=== PATIENT | male | born 1940 | race Caucasian/White ===

== ENCOUNTER 2017-12-10 11:00 | Outpatient (CLI) | payer MEDICARE, OTHER | END 2017-12-10 11:01 | disposition home or self-care (01) | LOC: BICRAD 11:00 | PROVIDERS: ATTEND Internal Medicine Hematology & Oncology | DX: C90.00 Multiple myeloma not having achieved remission (principal) | CPT/HCPCS: 77075 ==

== ENCOUNTER 2017-12-11 09:53 | Outpatient (CLI) | payer MEDICARE, OTHER ==
--- NOTE | 2017-12-11 14:20 | PET ---
PET CT: HISTORY: A 77-year-old male with a recent diagnosis of multiple myeloma. TECHNIQUE: PET scan with CT attenuation correction is performed from the base of the brain through the proximal thighs following the intravenous administration of 10.2 mCi [id number] in the right antec ubital fossa. Imaging was performed after an uptake interval of 57 minutes. FINDINGS: There are multiple foci of increased FDG localization in the skeleton and including the spine, ribs, and scapula. The maximum SUV is 5.6 in the T7 vertebral body. No carlos hypermetabolism is seen in the neck, chest, axilla, abdomen, or pelvis. No hypermetabolic p ulmonary nodules, liver, or adrenal lesions are seen. There is physiologic activity in the GI and tracts and the visualized portions of the brain. CT s can used for attenuation correction demonstrates no evidence of pleural effusions or ascites. IMPRESSION: Multiple hypermetabolic foci in the skeleton consistent with recent diagnosis of multiple myeloma. POS: [facility]
== END 2017-12-11 09:54 | disposition home or self-care (01) ==
LOC: PET 09:53
PROVIDERS: ATTEND Internal Medicine Hematology & Oncology
DX: C90.00 Multiple myeloma not having achieved remission (principal)
CPT/HCPCS: 78815; A9552

== ENCOUNTER 2017-12-29 14:10 | Outpatient (CLI) | payer MEDICARE, OTHER ==
--- NOTE | 2017-12-29 14:58 | RAD ---
LEFT RIBS: HISTORY: Multiple myeloma. Secondary malignant neoplasm. Left rib pain. FINDINGS: AP and oblique views left ribs obtained. AP and oblique views left ribs demonstrate a nondisplaced left 7th rib fracture. No expansile rib le ave seen. Correlation with CT of the chest may be of use as clinically indicated. IMPRESSION: Nondisplaced left 7th rib fracture. No associated hemo- or pneumothorax is seen. POS: [facility]
--- NOTE | 2017-12-29 14:59 | RAD ---
RIGHT RIB SERIES: HISTORY: Right rib pain. FINDINGS: AP and oblique views right ribs obtained. Images demonstrate a mottled appearance involving the mid shaft of the right humerus. This is compat ible with the patient's history of multiple myeloma. No definite evidence of right rib fracture is seen. Osseous structures are otherwise unremarkable. IMPRESSION: Unremarkable AP and oblique views right ribs. POS: [facility]
--- NOTE | 2017-12-29 15:02 | RAD ---
THREE VIEWS STERNUM: HISTORY: Multiple myeloma, sternal pain. FINDINGS: AP, lateral, and oblique views sternum are obtained. There is a mid sternal body fracture with anterior displacement of the inferior fracture fragment rajesh roximately the width of the entire sternum. No other expansile masses or lesions seen. IMPRESSION: Mid body sternal fracture. POS: [facility]
== END 2017-12-29 14:11 | disposition home or self-care (01) ==
LOC: BICRAD 14:10
PROVIDERS: ATTEND Internal Medicine Hematology & Oncology
DX: C79.51 Secondary malignant neoplasm of bone (principal); C90.00 Multiple myeloma not having achieved remission; S22.22XA Fracture of body of sternum, initial encounter for closed fracture; S22.32XA Fracture of one rib, left side, initial encounter for closed fracture
CPT/HCPCS: 71120

== ENCOUNTER 2018-11-22 14:41 | Emergency (ER) | payer MEDICARE, OTHER ==
[2018-11-22 15:31] LABS: Hemoglobin 12.1 g/dL (14.0-18.0); Mean Corpuscular HGB CONC 34.2 g/dL (32.0-36.0); Mean Corpuscular Hemoglobin 33.7 pg (27.0-31.0); Mean Corpuscular Volume 98.6 fL (78.0-98.0); Mean Platelet Volume 8.4 fL (7.4-10.4); Platelet Count 109 thou/uL (130-400); RBC Distribution Width 13.1 % (11.5-14.5); Red Blood Cell (RBC) Count 3.61 mill/uL (4.70-6.10); White Blood Cell (WBC) Count 2.8 thou/uL (4.8-10.8)
[2018-11-22 15:42] LABS: ALT (SGPT) 54 U/L (8-55); AST (SGOT) 45 U/L (5-34); Albumin 3.9 g/dL (3.4-4.8); Alkaline Phosphatase 84 U/L (40-150); Anion Gap 11 mmol/L (10-20); BUN (Urea Nitrogen) 23 mg/dL (8.4-25.7); Bilirubin, Total 1.1 mg/dL (0.2-1.2); Calc. Creatinine Clearance 0 mL/min (70-130); Calcium 8.7 mg/dL (7.8-10.44); Carbon Dioxide 25 mmol/L (23-31); Chloride 105 mmol/L (98-107); Estimated GFR-MDRD 72; Globulin 2.7 g/dL (2.4-3.5); Glucose 102 mg/dL (83-110); Potassium 4.3 mmol/L (3.5-5.1); Protein, Total 6.6 g/dL (5.8-8.1); Sodium 137 mmol/L (136-145)
[2018-11-22 15:46] LABS: Band 2 % (5-11); Eosinophils 5 % (0-10); Large Platelets SLIGHT; Lymphocytes 15 % (21-51); MDiff Complete? YES; Monocytes 10 % (0-10); Neutrophil 65 % (42-75); Platelet Morphology Comment Appears Decreased; RBC Morphology Normal
--- NOTE | 2018-11-22 16:00 | ULT ---
EXAM: Left lower extremity venous Doppler PROVIDED CLINICAL HISTORY: Edema FINDINGS: Grayscale and color Doppler sonography with spectral analysis was performed of the left common femora l, femoral, popliteal, posterior tibial, greater saphenous and profunda femoral veins. The evaluated venous structures demonstrate a normal sonographic appearance. IMPRESSION: No sonographic evidence for left lower extremity deep venous thrombosis.
== END 2018-11-22 17:15 | disposition home or self-care (01) ==
LOC: SCSER 14:41
DX: L03.116 Cellulitis of left lower limb (principal); Z79.82 Long term (current) use of aspirin; Z79.899 Other long term (current) drug therapy
CPT/HCPCS: 36415; 80053; 83605; 85025; 87040; 96365; 96366; J3370

== ENCOUNTER 2018-11-27 11:44 | Outpatient (CLI) | payer MEDICARE, OTHER ==
--- NOTE | 2018-11-27 12:24 | ULT ---
ULTRASOUND DOPPLER DUPLEX VENOUS LEFT LOWER EXTREMITY: DATE: 11/27/2018 HISTORY: Left lower extremity pain in 78-year-old male. TECHNIQUE: Grayscale, color-flow, and spectral analysis, of major veins of left lower extremity. FINDINGS: There is demonstration of blood flow with normal compressibility, of the left common femoral, profund a femoral, greater saphenous, femoral, popliteal, and posterior tibial, veins. There is edema in the soft tissues superficial to the posterior tibial vein. IMPRESSION: 1. No deep venous thrombosis of left lower extremity. 2. Soft tissue edema in left leg.
== END 2018-11-27 11:45 | disposition home or self-care (01) ==
LOC: ULT 11:44
PROVIDERS: ATTEND Internal Medicine Hematology & Oncology
DX: I82.90 Acute embolism and thrombosis of unspecified vein (principal); R60.0 Localized edema; M79.605 Pain in left leg

== ENCOUNTER 2019-03-10 12:32 | Inpatient (IN) | payer MEDICARE, OTHER ==
--- NOTE | 2019-03-10 13:10 | RAD ---
CHEST ONE VIEW: HISTORY: Progressive weakness. FINDINGS: Heart size is within normal limits. There are atherosclerotic changes of the aorta. The lungs show ch ronic appearing change. IMPRESSION: No active intrathoracic disease. POS: [facility]
[2019-03-10 13:35] LABS: #Eosinphils 0.1 thou/uL (0.0-0.7); #Lymphocytes 0.6 thou/uL (1.20-3.40); #Monocytes 0.4 thou/uL (0.11-0.59); #Neutrophils 2.1 thou/uL (1.40-6.50); %Basophils 0.9 % (0.0-1.0); %Eosinophils 2.9 % (0.0-10.0); %Lymphocytes 18.4 % (21.0-51.0); %Monocytes 12.4 % (0.0-10.0); %Neutrophils 65.5 % (42.0-75.0); Hemoglobin 11.4 g/dL (14.0-18.0); Mean Corpuscular HGB CONC 34.3 g/dL (32.0-36.0); Mean Corpuscular Hemoglobin 34.5 pg (27.0-31.0); RBC Distribution Width 15.1 % (11.5-14.5); Red Blood Cell (RBC) Count 3.31 mill/uL (4.70-6.10); White Blood Cell (WBC) Count 3.2 thou/uL (4.8-10.8)
[2019-03-10 13:52] LABS: ALT (SGPT) 52 U/L (8-55); AST (SGOT) 30 U/L (5-34); Albumin 2.7 g/dL (3.4-4.8); Alkaline Phosphatase 118 U/L (40-110); Anion Gap 13 mmol/L (10-20); BUN (Urea Nitrogen) 23 mg/dL (8.4-25.7); Bilirubin, Total 0.8 mg/dL (0.2-1.2); CK (CPK) 82 U/L (30-200); Calc. Creatinine Clearance 0 mL/min (70-130); Calcium 7.9 mg/dL (7.8-10.44); Carbon Dioxide 19 mmol/L (23-31); Chloride 106 mmol/L (98-107); Estimated GFR-MDRD 66; Globulin 2.9 g/dL (2.4-3.5); Glucose 138 mg/dL (83-110); Lipase 11 U/L (8-78); Potassium 4.1 mmol/L (3.5-5.1); Protein, Total 5.6 g/dL (5.8-8.1); Sodium 134 mmol/L (136-145)
[2019-03-10 13:54] LABS: Mean Platelet Volume 9.4 fL (7.4-10.4); Platelet Count 98 thou/uL (130-400)
[2019-03-10 13:59] LABS: Bacteria/HPF None Seen HPF (None Seen); Bilirubin Negative (Negative); Blood, Urine Negative (Negative); Clarity Clear (Clear); Glucose, Urine (Dipstick) Normal (Negative); Leukocyte Negative Leu/uL (Negative); Nitrite Negative (Negative); Protein, Urine (Dipstick) 30 mg/dL (Neg-Trace); Squamous Epithelial 0-3 HPF (0-3); Urobilinogen Normal mg/dL (Less than 2); WBC/HPF 0-3 HPF (0-3)
[2019-03-10 14:01] LABS: MDiff Complete? YES; Macrocytosis SLIGHT = 6-15 cells (100X) (0-5/hpf); Platelet Morphology Comment Appears Decreased
--- NOTE | 2019-03-10 14:17 | CT ---
CT Brain WO Con HISTORY: Altered mental status. COMPARISON: None. FINDINGS: There is generalized ventricular and sulcal prominence. There are no signs of intracerebral hemorrhage or extra-axial fluid collections. The mastoid air cells are clear there is a retention cyst in the sphenoid sinus region. IMPRESSION: No acute intracranial abnormalities.
[2019-03-10 14:28] LABS: CKMB 3.8 ng/mL (0-6.6)
[2019-03-10] MEDS ORDERED: Enoxaparin Sodium 80 MG/0.8 ML SYRINGE ONE (14:36)
[2019-03-10] MEDS ORDERED: Aspirin 325 MG TAB ONE (14:36)
[2019-03-10] MEDS ORDERED: Iopamidol-370 76% 500 ML 1 ML ONE (14:37)
--- NOTE | 2019-03-10 14:44 | CT ---
CT angiogram of chest performed with intravenous contrast enhancement with 3-D reconstructions HISTORY: Elevated d-dimer. Dyspnea COMPARISON: None. FINDINGS: There are peripheral infiltrative lung changes which are more subpleural in location and mo re right lung predominant. These changes could represent infiltrate but given the presence of pulmonary embolus may just be related to the emboli. The thoracic aorta is normal in caliber. There is a mildly dilated pulmonary artery and extensive ellie ateral upper and lower lobe pulmonary embolus present. The right ventricle and right atrium are also slightly dilated, all these changes are compatible with right heart strain related to the PE. The bones appear demineralized with mixed lytic and sclerotic areas consistent with patient's history of myeloma. A chronic appearing nonunion fracture of the sternum is incidentally seen. IMPRESSION: Extensive bilateral pulmonary embolus with evidence for right heart strain. Findings tele phoned to Dr. Garcia.
[2019-03-10] MEDS ORDERED: Sodium Chloride 0.9% 1,000 ML IV SCH (15:15)
[2019-03-10 17:09] LABS: Troponin I 0.155 ng/mL (< 0.028)
[2019-03-10] MEDS ORDERED: Ondansetron PF 4 MG/2 ML Vial IVP PRN (17:42)
[2019-03-10] MEDS ORDERED: Bisacodyl 5 MG TAB PO PRN (17:42)
--- NOTE | 2019-03-10 17:46 | PDOC.HHP ---
Hospitalist HPI - History of Present Illness shortness of breath History of Present Illness: This is a 78 year old male with a past medical history of multiple myeloma s/p stem cell transplant on 04/30/2017 who presented to the ER with worsening shortness of breath. The patient has had multiple myeloma since 2018. The patient was very active playing golf until February when he developed shortness of breath. He went to [facility], had a chest X ray which showed opacities in the left lower lobe and right lower lobe consistent with pneumonia and an EKG which showed sinus bradycardia. V/Q scan showed some unmatched defects in RLL but was attributed to pneumonia seen on chest X ray and thus interpreted as low probability for PE. The patient was subsequently treated with levaquin 500 mg daily for ten days. The patient had an ECHO done last week which showed EF 60-65 %, BNP of 159. He saw his PCP and oncologist last week and was told to just continue the levaquin. Over the last few days, the patient was extremely short of breath with even taking a shower, therefore he came to the emergency room. The patient denies chest pain. He has had low grade temp of 99.8, has a mild dry cough, but denies chills. He has decreased appetite and lost 7 pounds in the past few weeks. ED Course: THe patient in the emergency room desaturated to 70% on room air. He was placed on oxygen with improvement in oxygen to the 90's. D-dimer was 18. The patient underwent chest X ray which was normal. CTA showed extensive bilateral pulmonary embolus with evidence of right heart strain. Patient was given empiric lovenox, aspirin 325 mg and IV fluids. Trop was 0.92. Pulmonary evaluated the patient and felt patient was appropriate for the floor. Hospitalist ROS - Review of Systems Constitutional: reports: sweats. denies: fever, chills ENT: denies: ear pain, ear discharge Respiratory: reports: cough, shortness of breath, SOB with excertion. denies: hemoptysis, pleuritic pain, sputum, wheezing Cardiovascular: denies: chest pain, palpitations, orthopnea, light headedness Gastrointestinal: denies: nausea, vomiting, abdominal pain, diarrhea, constipation Genitourinary: denies: dysuria, frequency Musculoskeletal: denies: neck pain, shoulder pain Skin: denies: rash, lesions Hospitalist History - Past Medical History Other Medical History: Multiple Myeloma s/p stem cell transplant 04/30/2017 Constipation Allergies - Past Surgical History Other Surgical History: Hernia repair Rotator cuff surgery Right knee surgery Left foot surgery Skin/basal and squamous cancer removal Larynx surgery Liver biopsy to evaluate hemochromatosis - Family History Other Family History: Father had multiple myeloma Mom had liver and pancreatic cacner - Social History Smoking Status: Never smoker Alcohol: reports: None Drugs: reports: none Living Situation: With Family 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 - Exam General Appearance: NAD General - other findings: alopecia Eye: PERRL, anicteric sclera ENT: normocephalic atraumatic, no oropharyngeal lesions Neck: supple, symmetric, no JVD, no thyromegaly Heart: RRR, no murmur, no gallops, no rubs Respiratory: CTAB, no wheezes, no rales, no ronchi Gastrointestinal: soft, non-tender, non-distended Extremities: no cyanosis, no clubbing Extremities - other findings: 1+ edema on the left leg with mild erythem a Skin: normal turgor, no lesions Skin - other findings: mild erythema left leg Neurological: cranial nerve grossly intact, normal sensation to touch, no focal deficits, no new deficit Musculoskeletal: normal tone, normal strength, no muscle wasting Psychiatric: normal affect, normal behavior, A&O x 3, oriented to time Hospitalist Results - Labs Result Diagrams: 03/10/19 18:24 03/10/19 13:15 Lab results: WBC 3.2 thou/uL (4.8-10.8) L 03/10/19 13:15 Hgb 11.4 g/dL (14.0-18.0) L 03/10/19 13:15 Hct 33.4 % (42.0-52.0) L 03/10/19 13:15 MCV 101.0 fL (78.0-98.0) H 03/10/19 13:15 Plt Count 98 thou/uL (130-400) L 03/10/19 13:15 Neutrophils % 65.5 % (42.0-75.0) 03/10/19 13:15 Sodium 134 mmol/L (136-145) L 03/10/19 13:15 Potassium 4.1 mmol/L (3.5-5.1) 03/10/19 13:15 Chloride 106 mmol/L (98-107) 03/10/19 13:15 Carbon Dioxide 19 mmol/L (23-31) L 03/10/19 13:15 BUN 23 mg/dL (8.4-25.7) 03/10/19 13:15 Creatinine 1.08 mg/dL (0.7-1.3) 03/10/19 13:15 Glucose 138 mg/dL (83-110) H 03/10/19 13:15 Lactic Acid 2.0 mmol/L (0.5-2.2) 03/10/19 13:50 Calcium 7.9 mg/dL (7.8-10.44) 03/10/19 13:15 Total Bilirubin 0.8 mg/dL (0.2-1.2) 03/10/19 13:15 AST 30 U/L (5-34) 03/10/19 13:15 ALT 52 U/L (8-55) 03/10/19 13:15 Alkaline Phosphatase 118 U/L (40-110) H 03/10/19 13:15 Ammonia 21 umol/L (18-72) 03/10/19 13:50 Creatine Kinase 82 U/L (30-200) 03/10/19 13:15 CK-MB (CK-2) 3.8 ng/mL (0-6.6) 03/10/19 13:15 Troponin I 0.155 ng/mL (< 0.028) H 03/10/19 16:33 B-Natriuretic Peptide 951.3 pg/mL (0-100) H 03/10/19 13:15 Serum Total Protein 5.6 g/dL (5.8-8.1) L 03/10/19 13:15 Albumin 2.7 g/dL (3.4-4.8) L 03/10/19 13:15 Lipase 11 U/L (8-78) 03/10/19 13:15 Urine Ketones Negative mg/dL (Negative) 03/10/19 13:34 Urine Blood Negative (Negative) 03/10/19 13:34 Urine Nitrite Negative (Negative) 03/10/19 13:34 Ur Leukocyte Esterase Negative Sage/uL (Negative) 03/10/19 13:34 Urine RBC 4-6 HPF (0-3) A 03/10/19 13:34 Urine WBC 0-3 HPF (0-3) 03/10/19 13:34 Ur Squamous Epith Cells 0-3 HPF (0-3) 03/10/19 13:34 Urine Bacteria None Seen HPF (None Seen) 03/10/19 13:34 - EKG Interpretation EKG: normal sinus rhythm with sinus bradycardia at [facility] ECHO last week: trivial to mild MR, mild to moderate MR, EF 60-65$ Chest Xray [facility]: opacities left lower lobe and right lower lobe V/Q scan: low probability PE Hospitalist H&P A/P - Plan Plan: EKG: T wave inversion lead III, V2-V5 CTA: peripheral infiltrative lung changes which are subpleural in location and more right lung predominant which may be from PE> extesnive bilateral pulmonary embolus with evidence of right heart strain #Acute hypoxic respiratory failure secondary to bilateral pulmonary emboli - chets X ray negative, d-dimer elevated. CTA shows extensive bilateral PE with right heart strain - continue lovenox 70 mg SC q12 hours - pulmonary was consulted in the ER. Hematology input with regards to continuing lovenox vs transition to oral given active malignancy - decrease aspirin to 81 to avoid bleeding #Multiple Myeloma s.p stem cell transplant #Pancytopenia - possibly secondary to multiple myeloma - WBC 3.1, Hb 11.6, platelets 98 - check B12 and folate in the morning - oncology consult in morning, patient is on revlimid daily, defer to oncology with regards to ordering this - on xgeva q4 weeks #Hyponatremia - sodium 134, will order IV fluids #Elevated ALP - 118 currently #Elevated troponin - likely demand ischemia from PE - trop trending up, no chest pain currently, likely from PE - will repeat ECHO to re-evaluate heart strain - order IV fluids since patient appears dehydrated - reduce aspirin to 81 mg in am Peripheral edema - had negative dopplers in the past in November, but will repeat given new PE diagnosis GI prophylaxis: protonix DVT prophylaxis: lovenox Code status: full code
[2019-03-10 18:26] VITALS: BMI 23.6
[2019-03-10 18:30] LABS: #Eosinphils 0.1 thou/uL (0.0-0.7); #Lymphocytes 0.7 thou/uL (1.20-3.40); #Monocytes 0.4 thou/uL (0.11-0.59); #Neutrophils 1.5 thou/uL (1.40-6.50); %Basophils 1.7 % (0.0-1.0); %Lymphocytes 24.6 % (21.0-51.0); %Monocytes 13.3 % (0.0-10.0); %Neutrophils 56.4 % (42.0-75.0); Hemoglobin 10.7 g/dL (14.0-18.0); Mean Corpuscular Hemoglobin 34.6 pg (27.0-31.0); Mean Platelet Volume 9.8 fL (7.4-10.4); Platelet Count 99 thou/uL (130-400); RBC Distribution Width 15.3 % (11.5-14.5); Red Blood Cell (RBC) Count 3.09 mill/uL (4.70-6.10); White Blood Cell (WBC) Count 2.7 thou/uL (4.8-10.8)
[2019-03-10 19:54] LABS: Troponin I 0.147 ng/mL (< 0.028)
[2019-03-10] MEDS ORDERED: valACYclovir 500 MG TAB PO SCH (21:00)
[2019-03-10] MEDS ORDERED: Enoxaparin Sodium 80 MG/0.8 ML SYRINGE SC SCH (21:00)
[2019-03-10] MEDS: Senokot S 8.6-50 MG TAB PO SCH (21:13)
[2019-03-10] MEDS: Dextrose 5 % And 0.9 % NaCl 1,000 ML IV SCH (21:16)
--- NOTE | 2019-03-10 21:22 | ULT ---
EXAM: Bilateral lower extremity venous Doppler HISTORY: Pulmonary emboli and elevated d-dimer. Patient has bilateral lower extremity edema. FINDINGS: Grayscale, color-flow, Doppler evaluation, spectral analysis of the bilateral lower extremities venou s structures is performed with 2-D imaging. The bilateral common femoral, superficial femoral, popliteal, posterior tibial, proximal greater saphenous and profunda femoral veins are imaged. There is normal luminal compressibility, flow, and augmentation in the visualized deep venous structu res of the bilateral lower extremities. There is a small anechoic collection seen at the posterior medial aspect of the right knee which does not demonstrate flow on color flow evaluation and may represent a small popliteal cyst. This measures 2.4 cm x 0.5 cm x 1.4 cm. IMPRESSION: 1. No evidence of a deep vein thrombosis in the visualized deep venous structures bilateral lower ext remities. 2. Probable small right Zapata's cyst.
[2019-03-11] MEDS: Enoxaparin Sodium 80 MG/0.8 ML SYRINGE SC SCH ×3 (00:17→15:03)
[2019-03-11 04:47] LABS: Anion Gap 9 mmol/L (10-20); BUN (Urea Nitrogen) 17 mg/dL (8.4-25.7); Calc. Creatinine Clearance 70 mL/min (70-130); Calcium 7.1 mg/dL (7.8-10.44); Carbon Dioxide 22 mmol/L (23-31); Chloride 109 mmol/L (98-107); Estimated GFR-MDRD 80; Glucose 106 mg/dL (83-110); Potassium 3.9 mmol/L (3.5-5.1); Sodium 136 mmol/L (136-145)
[2019-03-11 04:57] LABS: Hemoglobin 10.6 g/dL (14.0-18.0); Platelet Count 88 thou/uL (130-400)
--- NOTE | 2019-03-11 07:57 | CON ---
DATE OF CONSULTATION: CONSULTING PHYSICIAN: Lance Nugent. REASON FOR CONSULTATION: Pulmonary embolism. HISTORY OF PRESENT ILLNESS: General Patel is a 78-year-old, who presents with a 3-week history of increasing shortness of breath. He has multiple myeloma and is followed by both Dr. Samuels and by [facility]. He had leg ultrasounds in the previous months, which were negative. He had a ventilation-perfusion scan done a couple of weeks ago in [place], which was negative. They referred to do a CT pulmonary angiogram because of his kidney function. PAST MEDICAL HISTORY: Multiple myeloma. PAST SURGICAL HISTORY: 1. Hernia repair. 2. Left rotator cuff surgery. PSYCHIATRIC HISTORY: Negative. 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 SOCIAL HISTORY: Nonsmoker. Does not consume alcohol. Does not use illicit drugs. MEDICATIONS: Prior to admission; 1. Revlimid. 2. Valacyclovir. 3. Aspirin. 4. Multivitamins. 5. Cetirizine. 6. Xgeva. ALLERGIES: PENICILLIN. FAMILY MEDICAL HISTORY: Unremarkable. REVIEW OF SYSTEMS: Twelve-point review of systems is otherwise negative. Of note, this patient had been very active prior to hospitalization, walking up to 9 holes of golf per day up until 3 weeks ago. PHYSICAL EXAMINATION: VITAL SIGNS: His blood pressure is 120/75, pulse is in the 80s, O2 saturation in the mid 90s on 4 L nasal cannula, respiratory rate 18. GENERAL: The patient is an elderly male, in no acute distress. HEENT: Remarkable for alopecia. NECK: No adenopathy or JVD. LUNGS: Clear without wheezing or rhonchi. CARDIOVASCULAR: S1, S2 regular without murmur. ABDOMEN: Soft and nontender to palpation. EXTREMITIES: No clubbing or cyanosis. His left calf diameter is somewhat increased compared to right. LABORATORY DATA: White blood cell count 3.2, hematocrit 33.4, and platelet count 98. D-dimer is 18.5. Sodium 134, potassium 4.1, chloride 106, CO2 of 19, BUN 26, creatinine 1.1, glucose 138, alkaline phosphatase 118. BNP 951. Troponin 0.09. DIAGNOSTIC DATA: I reviewed CT pulmonary angiogram personally. ASSESSMENT: 1. Pulmonary embolism with bilateral pulmonary emboli noted on CT pulmonary angiogram. 2. Negative brain CT - recent fall, where he hit his head. 3. Multiple myeloma. PLAN: The patient will be placed on subcutaneous Lovenox and monitored closely. I do not think that he needs thrombolysis, needs to continue with hydration, given the fact that he got contrast today. We will follow. Job ID: [id number]
[2019-03-11] MEDS: Cetirizine HCl 10 MG TAB PO SCH (08:59)
[2019-03-11] MEDS: Aspirin 81 mg Enteric Coated Tablet PO SCH (08:59)
[2019-03-11] MEDS: valACYclovir 500 MG TAB PO SCH (09:00)
[2019-03-11] MEDS: Senokot S 8.6-50 MG TAB PO SCH ×2 (09:00→21:29)
[2019-03-11] MEDS ORDERED: Pantoprazole 40 MG GRANULES PACKET PO SCH (09:00)
[2019-03-11] MEDS: Multivit, Therapeutic 1 TAB PO SCH (09:04)
[2019-03-11] MEDS: Dextrose 5 % And 0.9 % NaCl 1,000 ML IV SCH (11:10)
--- NOTE | 2019-03-11 11:15 | PDOC.HOSPP ---
- Subjective Encounter Date: 03/11/19 Encounter Time: 15:00 Subjective: Patient with some SOB and cough. Stable. No new complaints. - Objective Vital Signs & Weight: Vital Signs (12 hours) Temp Pulse Resp BP Pulse Ox 03/11/19 08:50 98.8 F 80 18 112/77 96 03/11/19 03:03 98.7 F 78 18 98/60 95 03/11/19 00:00 112/70 Weight Weight 160 lb 0.889 oz I&O: 03/10/19 03/11/19 03/12/19 06:59 06:59 06:59 Intake Total 450 700 Output Total 250 Balance 450 450 Result Diagrams: 03/11/19 04:13 03/11/19 04:13 Hospitalist ROS - Review of Systems Constitutional: denies: fever, chills Respiratory: reports: cough, shortness of breath Cardiovascular: denies: chest pain, palpitations, orthopnea Gastrointestinal: denies: nausea, vomiting, abdominal pain - Medication Medications: Active Medications Generic Name Dose Route Start Last Admin Trade Name Freq PRN Reason Stop Dose Admin Aspirin 81 mg 03/11/19 09:00 03/11/19 08:59 Ecotrin PO 81 mg DAILY FERNANDO Administration Cetirizine HCl 10 mg 03/11/19 09:00 03/11/19 08:59 Zyrtec PO 10 mg DAILY FERNANDO Administration Enoxaparin Sodium 70 mg 03/11/19 03:00 03/11/19 02:52 Lovenox SC 70 mg 0300,1500 FERNANDO Administration Dextrose/Sodium Chloride 1,000 mls @ 75 mls/hr 03/10/19 19:00 03/11/19 11:10 D5 0.9% Ns IV 1,000 mls .[id number] FERNANDO Administration Multivitamins 1 tab 03/11/19 09:00 03/11/19 09:04 Theragran PO 1 tab DAILY FERNANDO Administration Senna/Docusate Sodium 1 tab 03/10/19 21:00 03/11/19 09:00 Senokot S PO 1 tab BID FERNANDO Administration Sodium Chloride 10 ml 03/10/19 21:00 03/11/19 09:00 Flush - Normal Saline IVF 10 ml Q12HR FERNANDO Administration Valacyclovir HCl 500 mg 03/11/19 09:00 03/11/19 09:00 Valtrex PO 500 mg DAILY FERNANDO Administration - Exam General Appearance: NAD, awake alert Eye: anicteric sclera ENT: moist mucosa Heart: RRR, no murmur, no gallops, no rubs Respiratory: CTAB, no wheezes, no rales, no ronchi Respiratory - other findings: intermittent cough Gastrointestinal: soft, non-tender, non-distended, normal bowel sounds Extremities: no edema Psychiatric: normal affect, normal behavior, A&O x 3 Hosp A/P - Plan Bilateral Pulmonary Embolism - CT with evidence bilateral emboli and right heart strain - on Lovenox, Dr. Madrid consulted - decrease Aspirin to 81mg to avoid bleeding - ECHO with mild right heart enlargement and increased pressure #Acute hypoxic respiratory failure secondary to bilateral pulmonary emboli #Multiple Myeloma s.p stem cell transplant #Pancytopenia - possibly secondary to multiple myeloma - WBC 3.1, Hb 11.6, platelets 98 --> stable - B12 and folate ok - oncology consulted, patient is on revlimid daily, defer to oncology with regards to ordering this - on xgeva q4 weeks #Hyponatremia - resolved with IV fluids #Elevated ALP - 118 currently #Elevated troponin - likely demand ischemia from PE - indeterminate troponin stable, no chest pain currently, likely from PE Peripheral edema - negative lower extremity dopplers GI prophylaxis: protonix DVT prophylaxis: lovenox Code status: full code
--- NOTE | 2019-03-11 16:59 | CON ---
DATE OF CONSULTATION: 03/11/2019 HISTORY OF PRESENT ILLNESS: Mr. Patel is a 78-year-old male with a history of multiple myeloma, currently in remission after stem cell transplant in early 2019. He has been on Revlimid maintenance at 10 mg p.o. daily for the last several months and has done quite well. He did notice about 3 weeks ago he had increasing shortness of breath and was at [facility] for routine followup at that time. A V/Q scan was done which did show a defect, but it was thought that possibly it was pneumonia. The patient has not had fever nor has he had cough. He became progressively short of breath to the point that on the morning of admission he could not even get up to take a shower, because he was so weak and short of breath. He has had mild pleurisy, but today he states it is better. In the emergency room, it was noted that he had extensive bilateral pulmonary embolism as well as questionable right-sided heart strain on the CT scan. He is admitted on Lovenox and has been here for less than 24 hours. He states his breathing is still short and he still is weak, not much improvement in the last 24 hours. He denies any lower extremity edema or pain. He denies chest pain. PAST MEDICAL HISTORY: 1. Multiple myeloma, currently thought to be in remission on maintenance Revlimid. 2. Hypercholesterolemia. CURRENT MEDICATIONS: 1. Aspirin 81 mg p.o. daily. 2. Dulcolax 10 mg p.o. daily p.r.n. 3. Zyrtec 10 mg p.o. daily. 4. Lovenox 70 mg subcu b.i.d. 5. Multivitamin one p.o. daily. 6. Zofran 4 mg IV q.6 hours p.r.n. 7. Protonix 40 mg p.o. daily. 8. Senokot one tablet p.o. b.i.d. 9. Valacyclovir 500 mg p.o. daily. 10. As an outpatient, Revlimid 10 mg p.o. daily. ALLERGIES: PENICILLIN. SOCIAL HISTORY: He lives with his , is quite supportive. 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 He denies tobacco or alcohol use. He travels extensively and is an avid golfer, who is quite active up until 2 to 3 weeks ago. FAMILY HISTORY: Positive for liver cancer and possibly pancreatic cancer, otherwise noncontributory. REVIEW OF SYSTEMS: Otherwise 10-point review of systems is negative with the exception of loss of appetite. PHYSICAL EXAMINATION: VITAL SIGNS: Temperature 98.8, pulse 80, respirations 16, O2 saturation 95% on 4 L nasal cannula, and blood pressure 112/78. GENERAL: He is somewhat weak appearing, but no acute distress. He is talkative, but coughs when he talks. HEENT: Extraocular muscles are intact. Sclerae are anicteric. NECK: Supple without lymphadenopathy. CARDIOVASCULAR: Regular rhythm. LUNGS: Clear to auscultation with some cough involved with deep inspiration. ABDOMEN: Hypoactive bowel sounds. Soft and nontender. EXTREMITIES: No edema. No clubbing. No cyanosis, and no cellulitis, he did have a history of cellulitis several months ago, at which time ultrasounds were done which showed no evidence of DVT. LABORATORY DATA: White blood cell count 2.7, hemoglobin 10.7, and platelets 99. D-dimer 18, creatinine 0.9, and calcium 7.1. Troponin I 0.147. CT angiogram done in the emergency room showed extensive bilateral pulmonary embolus with evidence for right-sided heart strain. ASSESSMENT: Mr. Patel is a 78-year-old male with; 1. Bilateral pulmonary embolism, possibly contributed to by maintenance Revlimid. 2. History of multiple myeloma, currently in remission. 3. Pleurisy and shortness of breath with hypoxia secondary to the above. PLAN: 1. He is on Lovenox at 1 mg/kg b.i.d. Subcutaneously, this will be continued until he is transitioned to Eliquis. 2. Hold Revlimid for now. 3. Continue aspirin 81 mg p.o. daily for now. 4. Continue oxygen and pulmonary support, we appreciate residential lawn specialist help. 5. We will follow up the results of the echo. 6. Consider repeat echo in 4 to 6 weeks depending on these results. We will follow with you. Job ID: [id number]
--- NOTE | 2019-03-11 17:52 | PRG ---
DATE OF SERVICE: 03/11/2019 SUBJECTIVE: Mr. Patel is doing well. He has no complaints. His had numerous questions that I answered. His shortness of breath is slightly better, but not a lot better compared to yesterday. OBJECTIVE: VITAL SIGNS: He is afebrile. Heart rate is 85, respiratory rate is 16, oximetry is 96%, and blood pressure 106/56. LUNGS: Clear. HEART: Regular rhythm. ABDOMEN: Soft. LABORATORY DATA: Hemoglobin 7.8 today, white count 12.5, and platelets 396,000. IMPRESSION: 1. Thromboembolic disease. 2. Anemia. He may require transfusion before this hospitalization is complete. 3. Multiple myeloma, currently being followed at [facility]. He can be switched to oral anticoagulants in my opinion, which will make him happy. We will continue to follow. Job ID: [id number]
[2019-03-11] MEDS: Apixaban 5 MG TAB PO SCH (21:28)
[2019-03-12] MEDS: Dextrose 5 % And 0.9 % NaCl 1,000 ML IV SCH ×2 (00:14→12:31)
[2019-03-12] MEDS: Cetirizine HCl 10 MG TAB PO SCH (08:12)
[2019-03-12] MEDS: Multivit, Therapeutic 1 TAB PO SCH (08:12)
[2019-03-12] MEDS: Aspirin 81 mg Enteric Coated Tablet PO SCH (08:12)
[2019-03-12] MEDS: Apixaban 5 MG TAB PO SCH ×2 (08:12→21:10)
[2019-03-12] MEDS: valACYclovir 500 MG TAB PO SCH (08:13)
[2019-03-12] MEDS: Senokot S 8.6-50 MG TAB PO SCH ×2 (08:13→21:14)
--- NOTE | 2019-03-12 10:16 | PDOC.HOSPP ---
- Subjective Encounter Date: 03/12/19 Encounter Time: 12:30 Subjective: Patient feeling much better. Will try weaning oxygen down as tolerated. Per PT note yesterday patient may need rehab/SNF, will see how fast he responds. - Objective Vital Signs & Weight: Vital Signs (12 hours) Temp Pulse Resp BP Pulse Ox 03/12/19 08:04 98.8 F 69 18 120/75 98 03/12/19 03:49 98.0 F 63 18 94 L 03/12/19 00:00 97.7 F 72 22 H 117/74 95 Weight Admit Weight 160 lb 0.889 oz Weight 160 lb 0.889 oz I&O: 03/11/19 03/12/19 03/13/19 06:59 06:59 06:59 Intake Total 450 3460 Output Total 1900 Balance 450 1560 Result Diagrams: 03/12/19 10:30 03/11/19 04:13 Hospitalist ROS - Review of Systems Constitutional: reports: fever, chills Respiratory: reports: cough, shortness of breath Cardiovascular: denies: chest pain, palpitations, orthopnea Gastrointestinal: denies: nausea, vomiting, abdominal pain - Medication Medications: Active Medications Generic Name Dose Route Start Last Admin Trade Name Freq PRN Reason Stop Dose Admin Apixaban 10 mg 03/11/19 21:00 03/12/19 08:12 Eliquis PO 10 mg BID FERNANDO Administration Aspirin 81 mg 03/11/19 09:00 03/12/19 08:12 Ecotrin PO 81 mg DAILY FERNANDO Administration Cetirizine HCl 10 mg 03/11/19 09:00 03/12/19 08:12 Zyrtec PO 10 mg DAILY FERNANDO Administration Dextrose/Sodium Chloride 1,000 mls @ 75 mls/hr 03/10/19 19:00 03/12/19 00:14 D5 0.9% Ns IV 1,000 mls .[id number] FERNANDO Administration Multivitamins 1 tab 03/11/19 09:00 03/12/19 08:12 Theragran PO 1 tab DAILY FERNANDO Administration Pantoprazole Sodium 40 mg 03/12/19 09:00 03/12/19 08:13 Protonix PO 40 mg DAILY FERNANDO Administration Senna/Docusate Sodium 1 tab 03/10/19 21:00 12/27/19 08:13 Senokot S PO Not Given BID [facility] Sodium Chloride 10 ml 03/10/19 21:00 03/12/19 08:14 Flush - Normal Saline IVF Not Given Q12HR FERNANDO Valacyclovir HCl 500 mg 03/11/19 09:00 03/12/19 08:13 Valtrex PO 500 mg DAILY FERNANDO Administration - Exam General Appearance: NAD Eye: anicteric sclera ENT: moist mucosa Heart: RRR, no murmur, no gallops, no rubs Heart - other findings: on O2, not SOB at rest Respiratory: CTAB, no wheezes, no rales, no ronchi Gastrointestinal: soft, non-tender, non-distended, normal bowel sounds Psychiatric: normal affect, normal behavior, A&O x 3 Hosp A/P - Plan Bilateral Pulmonary Embolism - CT with evidence bilateral emboli and right heart strain - given Lovenox, then switched to Eliquis by Dr. Hoang - decrease Aspirin to 81mg to avoid bleeding - ECHO with mild right heart enlargement and increased pressure, repeat in 4-6 weeks #Acute hypoxic respiratory failure secondary to bilateral pulmonary emboli #Multiple Myeloma s.p stem cell transplant #Pancytopenia - possibly secondary to multiple myeloma - WBC 3.1, Hb 11.6, platelets 98 --> stable - B12 and folate ok - oncology consulted, patient is on revlimid daily, defer to oncology with regards to ordering this - on xgeva q4 weeks #Hyponatremia - resolved with IV fluids #Elevated ALP - 118 currently #Elevated troponin - likely demand ischemia from PE - indeterminate troponin stable, no chest pain currently, likely from PE Peripheral edema - negative lower extremity dopplers GI prophylaxis: protonix DVT prophylaxis: lovenox Code status: full code Disp planning: wean O2, may need rehab/SNF depending on how he does with PT over the next couple days
[2019-03-12 10:45] LABS: #Eosinphils 0.1 thou/uL (0.0-0.7); #Lymphocytes 0.6 thou/uL (1.20-3.40); #Monocytes 0.4 thou/uL (0.11-0.59); #Neutrophils 1.9 thou/uL (1.40-6.50); %Eosinophils 4.6 % (0.0-10.0); %Lymphocytes 19.1 % (21.0-51.0); %Monocytes 12.3 % (0.0-10.0); %Neutrophils 62.9 % (42.0-75.0); Hemoglobin 10.3 g/dL (14.0-18.0); Mean Corpuscular HGB CONC 33.9 g/dL (32.0-36.0); Mean Corpuscular Hemoglobin 34.3 pg (27.0-31.0); Mean Platelet Volume 9.4 fL (7.4-10.4); Platelet Count 100 thou/uL (130-400); RBC Distribution Width 15.1 % (11.5-14.5); Red Blood Cell (RBC) Count 3.01 mill/uL (4.70-6.10)
--- NOTE | 2019-03-12 11:42 | PRG ---
DATE OF SERVICE: 03/12/2019 SUBJECTIVE: The patient is feeling somewhat better. He has had some bleeding from his urethral meatus on one occasion. OBJECTIVE: VITAL SIGNS: Temperature 98.9, pulse 69, respirations 18, O2 saturation 98% on 3 L, and blood pressure 120/75. HEENT: Unremarkable. NECK: No adenopathy or JVD. CHEST: Clear. CARDIAC: S1 and S2. Regular. ABDOMEN: Soft. EXTREMITIES: No edema. LABORATORY DATA: White blood cell count 3, hematocrit 30.4, and platelet count 100. Sodium 136, potassium 3.9, chloride 109, CO2 of 22, BUN 17, creatinine 0.9, and glucose 106. ASSESSMENT: Pulmonary emboli. PLAN: 1. We can go ahead and stop his IV fluids. 2. Continue the Eliquis. Job ID: [id number]
[2019-03-12] MEDS: Bacitracin 1 PK TOP SCH ×2 (17:14→21:14)
[2019-03-13 05:35] LABS: #Eosinphils 0.2 thou/uL (0.0-0.7); #Lymphocytes 0.7 thou/uL (1.20-3.40); #Monocytes 0.3 thou/uL (0.11-0.59); #Neutrophils 1.1 thou/uL (1.40-6.50); %Basophils 0.7 % (0.0-1.0); %Eosinophils 10.2 % (0.0-10.0); %Lymphocytes 28.8 % (21.0-51.0); %Monocytes 12.9 % (0.0-10.0); %Neutrophils 47.4 % (42.0-75.0); Hemoglobin 10.2 g/dL (14.0-18.0); Mean Corpuscular HGB CONC 34.4 g/dL (32.0-36.0); Mean Corpuscular Hemoglobin 34.8 pg (27.0-31.0); Mean Platelet Volume 9.4 fL (7.4-10.4); Platelet Count 102 thou/uL (130-400); RBC Distribution Width 15.1 % (11.5-14.5); Red Blood Cell (RBC) Count 2.93 mill/uL (4.70-6.10); White Blood Cell (WBC) Count 2.4 thou/uL (4.8-10.8)
[2019-03-13] MEDS: Senokot S 8.6-50 MG TAB PO SCH ×2 (09:48→21:55)
[2019-03-13] MEDS: Apixaban 5 MG TAB PO SCH ×2 (09:49→21:55)
[2019-03-13] MEDS: Aspirin 81 mg Enteric Coated Tablet PO SCH (09:49)
[2019-03-13] MEDS: Cetirizine HCl 10 MG TAB PO SCH (09:49)
[2019-03-13] MEDS: Multivit, Therapeutic 1 TAB PO SCH (09:49)
[2019-03-13] MEDS: valACYclovir 500 MG TAB PO SCH (09:49)
[2019-03-13] MEDS: Bacitracin 1 PK TOP SCH ×3 (10:03→21:55)
--- NOTE | 2019-03-13 13:42 | PRG ---
DATE OF SERVICE: 03/13/2019 SUBJECTIVE: He feels better. He has been ambulating some in the room. OBJECTIVE: VITAL SIGNS: His O2 saturation was 89% at rest on room air and 97% on 2 L, temperature 97.9, pulse 68, respirations 18, blood pressure 111/66. HEENT: Unremarkable. NECK: No adenopathy or JVD. CHEST: Clear. CARDIAC: S1 and S2. Regular. ABDOMEN: Soft. EXTREMITIES: No edema. LABORATORY DATA: White blood cell count 2.4, hematocrit 29.6, platelet count 102. ASSESSMENT: 1. Pulmonary embolism. 2. Multiple myeloma. PLAN: 1. Continue anticoagulation. 2. His was insistent that I check urine culture because he is having some dysuria, so I will send that off. Job ID: [id number]
--- NOTE | 2019-03-13 15:07 | PDOC.HOSPP ---
- Subjective Encounter Date: 03/13/19 (f/u PE) Encounter Time: 15:06 Subjective: Pt able to ambulate with walker today short distances, able to sit in a chair. Denies any chest pain, n/v/abd pain, reports 3 episodes of diarrhea yesterday and one formed stool today. Some swelling in legs today. Some dysuria yesterday, none today. - Objective Vital Signs & Weight: Vital Signs (12 hours) Temp Pulse Resp BP BP BP Pulse Ox 03/13/19 11:30 97.9 F 70 16 103/66 97 03/13/19 08:15 97.9 F 68 18 111/66 97 03/13/19 03:55 98.2 F 65 18 108/70 96 Weight Admit Weight 160 lb 0.889 oz Weight 160 lb 0.889 oz I&O: 03/12/19 03/13/19 03/14/19 06:59 06:59 06:59 Intake Total 3460 1465 Output Total 1900 2290 Balance 1560 -825 Result Diagrams: 03/13/19 04:56 03/11/19 04:13 EKG Reviewed by me: Yes (tele - sinus 60-70's) Hospitalist ROS - Medication Medications: Active Medications Generic Name Dose Route Start Last Admin Trade Name Freq PRN Reason Stop Dose Admin Apixaban 10 mg 03/11/19 21:00 03/13/19 09:49 Eliquis PO 10 mg BID FERNANDO Administration Aspirin 81 mg 03/11/19 09:00 03/13/19 09:49 Ecotrin PO 81 mg DAILY FERNANDO Administration Bacitracin 1 pk 03/12/19 15:00 03/13/19 10:03 Bacitracin TOP 1 pk TID FERNANDO Administration Cetirizine HCl 10 mg 03/11/19 09:00 03/13/19 09:49 Zyrtec PO 10 mg DAILY FERNANDO Administration Multivitamins 1 tab 03/11/19 09:00 03/13/19 09:49 Theragran PO 1 tab DAILY FERNANDO Administration Pantoprazole Sodium 40 mg 03/12/19 09:00 03/13/19 09:49 Protonix PO 40 mg DAILY FERNANDO Administration Senna/Docusate Sodium 1 tab 03/10/19 21:00 03/13/19 09:48 Senokot S PO Not Given BID FERNANDO Sodium Chloride 10 ml 03/10/19 21:00 03/13/19 09:49 Flush - Normal Saline IVF 10 ml Q12HR FERNANDO Administration Valacyclovir HCl 500 mg 03/11/19 09:00 03/13/19 09:49 Valtrex PO 500 mg DAILY FERNANDO Administration - Exam General Appearance: NAD Heart: RRR, no murmur Respiratory - other findings: good air movement, faint bi-basilar rales Gastrointestinal: soft, non-tender, non-distended, normal bowel sounds Extremities: no cyanosis, no clubbing Extremities - other findings: 1+ pitting edema in LE bilateral left > right Musculoskeletal: normal tone Hosp A/P (1) Pulmonary embolus Code(s): I26.99 - OTHER PULMONARY EMBOLISM WITHOUT ACUTE COR PULMONALE Status : Acute (2) Acute respiratory failure with hypoxia Code(s): J96.01 - ACUTE RESPIRATORY FAILURE WITH HYPOXIA Status: Acute (3) Pancytopenia Code(s): D61.818 - OTHER PANCYTOPENIA Status: Acute (4) Hyponatremia Code(s): E87.1 - HYPO-OSMOLALITY AND HYPONATREMIA Status: Acute (5) Elevated troponin Code(s): R79.89 - OTHER SPECIFIED ABNORMAL FINDINGS OF BLOOD CHEMISTRY Status : Acute (6) Peripheral edema Code(s): R60.9 - EDEMA, UNSPECIFIED Status: Acute - Plan Appreciate Pulmonology consult - - Pt started on apixiban on 03/11 - will need 10 mg BID x 7 days then changed to 5 mg BID - wean oxygen as tolerated Dysuria - uncertain etiology, Ucx ordered Appreciate Oncology consult - hold revlimid for now Stockings or feet elevation for LE edema continue pt/ot CM consult for arranging home health - pt/ot/nursing visits. Pt/family are not interested in rehab dvt prophy -pt on full dose apixiban gi prophy - on ppi here due to full dose apixiban code status full reviewed plan of care with patient/family, no questions or further needs at end of eval.
[2019-03-14 04:49] LABS: #Eosinphils 0.2 thou/uL (0.0-0.7); #Lymphocytes 1.3 thou/uL (1.20-3.40); #Monocytes 0.4 thou/uL (0.11-0.59); #Neutrophils 1.6 thou/uL (1.40-6.50); %Basophils 0.8 % (0.0-1.0); %Eosinophils 5.8 % (0.0-10.0); %Lymphocytes 37.3 % (21.0-51.0); %Monocytes 10.6 % (0.0-10.0); %Neutrophils 45.5 % (42.0-75.0); Hemoglobin 10.2 g/dL (14.0-18.0); Mean Corpuscular HGB CONC 34.1 g/dL (32.0-36.0); Mean Corpuscular Hemoglobin 34.4 pg (27.0-31.0); Mean Platelet Volume 9.1 fL (7.4-10.4); Platelet Count 135 thou/uL (130-400); RBC Distribution Width 15.3 % (11.5-14.5); Red Blood Cell (RBC) Count 2.97 mill/uL (4.70-6.10); White Blood Cell (WBC) Count 3.6 thou/uL (4.8-10.8)
[2019-03-14 05:04] LABS: Anion Gap 11 mmol/L (10-20); BUN (Urea Nitrogen) 21 mg/dL (8.4-25.7); Calc. Creatinine Clearance 68 mL/min (70-130); Calcium 7.7 mg/dL (7.8-10.44); Carbon Dioxide 19 mmol/L (23-31); Chloride 110 mmol/L (98-107); Estimated GFR-MDRD 77; Glucose 98 mg/dL (83-110); Potassium 4.4 mmol/L (3.5-5.1); Sodium 136 mmol/L (136-145)
[2019-03-14] MEDS: Apixaban 5 MG TAB PO SCH (08:35)
[2019-03-14] MEDS: Cetirizine HCl 10 MG TAB PO SCH (08:35)
[2019-03-14] MEDS: Multivit, Therapeutic 1 TAB PO SCH (08:35)
[2019-03-14] MEDS: Bacitracin 1 PK TOP SCH ×2 (08:36→15:55)
[2019-03-14] MEDS: Senokot S 8.6-50 MG TAB PO SCH (08:36)
[2019-03-14] MEDS: valACYclovir 500 MG TAB PO SCH (08:36)
[2019-03-14] MEDS: Aspirin 81 mg Enteric Coated Tablet PO SCH (08:36)
[2019-03-14 11:56] VITALS: TEMP 97.9
--- NOTE | 2019-03-14 15:06 | PRG ---
DATE OF SERVICE: 03/14/2019 SUBJECTIVE: Mr. Jorge natarajan feels better. He had no acute complaints. He is not requiring oxygen. His room air O2 satis 97%. OBJECTIVE: HEENT: Unremarkable. NECK: No JVD. CHEST: Clear. CARDIAC: S1, S2. Regular. ABDOMEN: Soft. EXTREMITIES: Trace edema. LABORATORY DATA: His urine culture is negative. His laboratory tests were reviewed. ASSESSMENT: Pulmonary embolism. PLAN: From my standpoint, he is cleared to go home. He will need to be seen in the office in about 3 months. He will finish out the 10 mg of Eliquis twice a complete one week therapy and then go 5 mg twice a day afterward. I spoke to him regarding potential complications including bleeding and risk for brain injury should he fall. Job ID: [id number]
[2019-03-14 16:12] VITALS: BP 109/63
--- NOTE | 2019-03-14 16:56 | DIS ---
DATE OF ADMISSION: 03/10/2019 DATE OF DISCHARGE: 03/14/2019 CONSULTANTS: 1. Dr. Madrid of Pulmonology. 2. Dr. Samuels of Oncology. MEDICATIONS: Reconciled at discharge. New medications: 1. Eliquis 5 mg tablets 2 tablets p.o. b.i.d. x8 doses starting tonight, then 1 tablet p.o. b.i.d. Prescription provided for 68 tablets, one refill, further refills from Dr. Samuels. 2. Aspirin 81 mg daily. 3. Pantoprazole 40 mg one p.o. daily. Medications discontinued are; 1. Xgeva, we will defer to Dr. Samuels on when to resume this. 2. Revlimid, we will defer to Dr. Samuels for when to resume this. 3. Full-dose aspirin. This has been replaced by low-dose aspirin. Medications to continue; 1. Valacyclovir 500 mg daily. 2. Senokot 2 tablets at bedtime. 3. Multivitamin daily. 4. Cetirizine 10 mg daily. PRIMARY DIAGNOSES: 1. Pulmonary emboli, bilateral. 2. Acute hypoxic respiratory failure secondary to above, resolved. 3. Pancytopenia. 4. Hyponatremia, resolved. 5. Mildly elevated alkaline phosphatase. 6. Elevated troponin consistent with demand ischemia from pulmonary embolism. SECONDARY DIAGNOSES: 1. Multiple myeloma. 2. Lower extremity edema. HISTORY OF PRESENT ILLNESS: Mr. Patel is a 78-year-old male, who presented to the emergency room with increasing shortness of breath. On CT scan, he was found to have a PE, was started on full anticoagulation and hospitalist called for admission. HOSPITAL COURSE: The patient has been treated with full anticoagulation here, was started on Eliquis on 03/14, received his first dose that evening. He has tolerated this treatment well, has been followed by the Pulmonology Service, primarily Dr. Madrid. The patient initially was oxygen requiring, however, this was discontinued last night as he has not needed it. He is up ambulating with the assistance of a walker, breathing well on room air, and does meet criteria for discharge to home. He has been monitored on telemetry and maintained a sinus rhythn. With a history of multiple myeloma, the patient currently on Xgeva and Revlimid, Oncology was consulted. The Xgeva he receives once monthly, Dr. Samuels will decide when next treatment is due. The Revlimid has been discontinued, to follow up with Dr. Samuels about when or if to resume this medication. The patient's pancytopenia has remained stable. The patient was having some dysuria, and urine culture obtained, which was negative. The patient overall feeling improved. He does have some fatigue, but his breathing has improved since admission. He does meet criteria for discharge to home. He will need followup with Dr. Samuels in the outpatient setting. PHYSICAL EXAMINATION: VITAL SIGNS: Blood pressure 111/66, temperature 97.9, pulse 67, respirations 17 , and saturations is 97% on room air. GENERAL: Awake, alert, responsive, in no apparent distress. Able to speak in full sentences with some coughing. LUNGS: Clear to auscultation bilateral. No audible wheezing, rhonchi, or rales. HEART: Normal S1 and S2. Regular rate and rhythm. No significant murmur. ABDOMEN: Soft. Present bowel sounds. Nontender. Nondistended. EXTREMITIES: 1+ pitting edema of his lower extremities bilateral. URIOSTEGUI FINDINGS AND TEST RESULTS: CBC today of 3.6, 10.2, 30.0, and 135. On admission, his CBC 3.2, 11.4, 33.4, and 98. D-dimer 18.52. Chemistry; 136, 4.4, 110, 19, 21, 0.95, and 98. Calcium 7.7. Vitamin B12 of 963, folate 15. Troponin 0.147, 0.155, 0.092. BNP 951. LFTs on admission, T-bili 0.8, AST 30, ALT 52, alkaline phosphatase 118, total protein 5.6, and albumin 2.7. Urinalysis on admission; present protein, 4 to 6 red blood cells. Urine culture on 03/10 showed less than 10,000 normal skin sharla. Blood cultures x2 sets from 03/10 negative. Flu test on 03/10 negative. Urine culture on 03/13, no growth so far. Echocardiogram on 03/11, shows EF of 50% to 55%, E/A flow reversal noted suggestive of diastolic dysfunction, mild MR, moderate TR and mildly elevated pulmonary artery pressure. 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 Brain CT on 03/10, no acute intracranial abnormality. Chest x-ray on 03/10, no active intrathoracic disease. CT angiogram on 03/10, extensive bilateral PE with evidence for right heart strain. DIET: Regular. ACTIVITY: As tolerated, home health is to be arranged by Case Management here. CODE STATUS: Full. DISCHARGE DISPOSITION: Home, with home health to be arranged after discharge. FOLLOWUP: Follow up is with Dr. Samuels in the outpatient setting for discussion on medications to include Xgeva and Revlimid. Also, refills will be needed of the Eliquis, enough is prescribed for 2 months. Follow up with the primary care provider for any other health needs. Reviewed with the patient and his family this hospitalization, the importance of followup, to seek care precautions and they demonstrate understanding. TIME SPENT: Total time coordinating discharge is 40 minutes. Job ID: [id number] MTDD
== END 2019-03-14 16:20 | disposition home health service (06) | DRG 175 ==
LOC: ERS 12:32 → 2NO 15:34
PROVIDERS: ADMIT Internal Medicine; ATTEND Internal Medicine
DX: I26.99 Other pulmonary embolism without acute cor pulmonale (principal); J96.01 Acute respiratory failure with hypoxia; D61.818 Other pancytopenia; E87.1 Hypo-osmolality and hyponatremia; I24.8 Other forms of acute ischemic heart disease; C90.01 Multiple myeloma in remission; Z94.84 Stem cells transplant status; R79.89 Other specified abnormal findings of blood chemistry; R60.0 Localized edema; Z79.899 Other long term (current) drug therapy; Z79.82 Long term (current) use of aspirin; Z88.0 Allergy status to penicillin
CPT/HCPCS: 36415; 70450; 71045; 71275; 80048; 80053; 81003; 81015; 82140; 82550; 82553; 82607; 82746; 83605; 83690; 83880; 84484; 85014; 85018; 85025; 85049; 85379; 87040; 87086; 87804; 93005; 93306; 93970; 96360; 96372; J1650; Q9967

== ENCOUNTER 2019-04-30 14:18 | Outpatient (CLI) | payer MEDICARE, OTHER ==
--- NOTE | 2019-04-30 16:01 | ULT ---
ULTRASOUND LEFT BREAST: INDICATION: Enlarging left breast tissue. FINDINGS: Ultrasound of the retro- and perirenal region of the left breast performed. There is mild prominence of the breast parenchyma in the left breast. Comparison is made to the right breast. No focal mass or distortion. Findings suggest unilateral gynecomastia. Recommend t-month followup mammogram and ultrasound to confirm stability. IMPRESSION: BIRADS 3, probably benign. Recommend 6-month followup to confirm stability. POS: ALIZA
--- NOTE | 2019-05-04 14:38 | MMO ---
Bilateral MAMMO Bilat Diag [facility]NA. CLINICAL HISTORY: Patient is 78 years old and is seen for diagnostic exam and pain in the left breast. The patient has no family history of breast cancer. The patient has a history of bone cancer. VIEWS: The views performed were: bilateral craniocaudal with tomosynthesis; bilateral mediolateral oblique with tomosynthesis; and bilateral mediolateral with tomosynthesis. FILMS COMPARED: The present examination has been compared to a prior imaging study performed at [facility] on 04/30/2019. This study has been interpreted with the assistance of computer-aided detection. MAMMOGRAM FINDINGS: The breasts are almost entirely fat. Asymmetric parenchymal density retroareolar left breast. Mammogram and ultrasound findings suggest unilateral gynecomastia. Recommend 6 month follow up. In the right breast, there are no suspicious masses, calcifications or areas of architectural distortion. IMPRESSION: FINDING IN THE LEFT BREAST IS PROBABLY BENIGN. FOLLOW-UP IN 6 MONTHS IS RECOMMENDED. THE RESULTS OF THIS EXAM WERE SENT TO THE PATIENT. ACR BI-RADS Category 3 - Probably benign finding - short interval follow-up suggested. [facility] will notify the patient of the need for additional imaging services. MAMMOGRAPHY NOTE: 1. A negative mammogram report should not delay a biopsy if a dominant of clinically suspicious mass is present. 2. Approximately 10% to 15% of breast cancers are not detected by mammography. 3. Adenosis and dense breasts may obscure an underlying neoplasm. Reported by: YESICA ALBRIGHT MD Electonically Signed: [id number]
== END 2019-04-30 14:19 | disposition home or self-care (01) ==
LOC: BICULT 14:18
PROVIDERS: ATTEND Internal Medicine Hematology & Oncology
DX: N64.59 Other signs and symptoms in breast (principal)
CPT/HCPCS: 76642; 77066; G0279

== ENCOUNTER 2021-04-04 13:56 | Outpatient (CLI) | payer MEDICARE, OTHER ==
[2021-04-04 15:30] LABS: Hemoglobin 12.1 g/dL (13.5-17.5); Mean Corpuscular HGB CONC 33.1 g/dL (32.0-36.0); Mean Corpuscular Hemoglobin 33.7 pg (27.0-33.0); Mean Corpuscular Volume 101.9 fl (81.2-95.1); Mean Platelet Volume 10.7 fl (7.4-10.4); Platelet Count 119 10x3/uL (150-450); RBC Distribution Width 14.5 % (11.5-14.5); Red Blood Cell (RBC) Count 3.59 10x6/uL (4.32-5.72); White Blood Cell (WBC) Count 2.6 10x3/uL (3.5-10.5)
[2021-04-04 15:41] LABS: MDiff Complete? YES
[2021-04-04 15:44] LABS: Prothrombin Time 11.1 sec (9.5-12.1)
[2021-04-04 15:52] LABS: Anion Gap 11 mmol/L (10-20); BUN (Urea Nitrogen) 35 mg/dL (8.4-25.7); Calc. Creatinine Clearance 0 mL/min (70-130); Calcium 8.8 mg/dL (7.8-10.44); Carbon Dioxide 26 mmol/L (23-31); Chloride 107 mmol/L (98-107); Glucose 116 mg/dL (83-110); Potassium 4.5 mmol/L (3.5-5.1); Sodium 139 mmol/L (136-145)
[2021-04-04 15:54] LABS: Band 5 % (5-11); Eosinophils 1 % (0-10); Lymphocytes 29 % (21-51); Monocytes 13 % (0-10); Neutrophil 50 % (42-75); Reactive Lymphocytes 1 % (0-10)
[2021-04-04 15:55] LABS: Platelet Morphology Comment Appears Decreased
[2021-04-04 23:50] LABS: SARS-CoV-2 PCR by NAA Not Detected (NotDetected)
== END 2021-04-04 13:57 | disposition home or self-care (01) ==
LOC: LABBT 13:56
PROVIDERS: ATTEND Orthopaedic Surgery
DX: Z01.818 Encounter for other preprocedural examination (principal); M17.11 Unilateral primary osteoarthritis, right knee; Z20.822 Contact with and (suspected) exposure to COVID-19
CPT/HCPCS: 80048; 85025; 85610; 87081; U0003; U0005; 93005; 93010

== ENCOUNTER 2021-04-09 05:21 | Inpatient (IN) | payer MEDICARE, OTHER ==
[2021-03-29 13:41] VITALS: BMI 25.4
[2021-04-09] MEDS ORDERED: Tranexamic Acid 1,000 MG/10 ML VIAL ONE (06:06)
[2021-04-09] MEDS ORDERED: Vancomycin 1 GM/200 ML BAG ONE (06:06)
[2021-04-09] MEDS ORDERED: Sodium Chloride 0.9% 100 ML ONE (06:07)
[2021-04-09] MEDS ORDERED: Fentanyl 100 MCG/2 ML VIAL ONE ×4 (06:20→09:47)
[2021-04-09] MEDS ORDERED: Bupivacaine PF 0.5% 30 ML VIAL ONE (06:28)
[2021-04-09] MEDS ORDERED: Lidocaine 1% PF 5 ML VIAL ONE ×2 (06:46→07:17)
[2021-04-09] MEDS ORDERED: Midazolam HCl 2 mg/2 ml Vial ONE (06:46)
[2021-04-09] MEDS ORDERED: Bupivacaine HCl 0.5%/Epinephrine 1:200,000/PF 30 ml Vial ONE (07:02)
[2021-04-09] MEDS ORDERED: ceFAZolin 2 GM/Dextrose 50 ML IVPB ONE (07:05)
[2021-04-09] MEDS ORDERED: diphenhydrAMINE 25 MG CAP PO PRN ×2 (07:10→18:28)
[2021-04-09] MEDS ORDERED: HYDROcodone/Acetaminophen 10/325 mg Tablet PO PRN ×3 (07:10→09:00)
[2021-04-09] MEDS ORDERED: Acetaminophen 325 MG TAB PO PRN (07:10)
[2021-04-09] MEDS ORDERED: Zolpidem Tartrate 5 MG TAB PO PRN ×3 (07:10→18:28)
[2021-04-09] MEDS ORDERED: Promethazine HCl 25 MG/ML VIAL IM PRN ×3 (07:10→18:28)
[2021-04-09] MEDS ORDERED: traMADol HCl 50 MG TAB PO PRN ×4 (07:10→09:00)
[2021-04-09] MEDS ORDERED: Ondansetron PF 4 MG/2 ML Vial IVP PRN ×3 (07:10→18:28)
[2021-04-09] MEDS ORDERED: Fentanyl 100 MCG/2 ML VIAL SLOW IVP PRN (07:10)
[2021-04-09] MEDS ORDERED: Ondansetron PF 4 MG/2 ML Vial ONE (07:17)
[2021-04-09] MEDS ORDERED: ePHEDrine 50 MG/ML VIAL ONE (07:17)
[2021-04-09] MEDS ORDERED: PROPOFOL 200 MG/20 ML VIAL ONE (07:17)
[2021-04-09] MEDS ORDERED: Ondansetron HCl/PF 4 MG/2 ML Vial IVP PRN (08:58)
[2021-04-09] MEDS ORDERED: LENALIDOMIDE 10 MG PO SCH (09:00)
[2021-04-09] MEDS ORDERED: Non-Formulary Item 1 EACH (Cholecalciferol (Vitamin D3) [Vitamin D3] 1,000 UNIT Capsule) PO SCH (09:00)
[2021-04-09] MEDS ORDERED: Ropivacaine 0.2% 550 ML 550 ML NERVE BLCK SCH (09:00)
[2021-04-09] MEDS ORDERED: Levothyroxine Sodium 50 MCG TAB PO SCH (09:00)
[2021-04-09] MEDS ORDERED: Cetirizine HCl 10 MG TAB PO SCH (09:00)
[2021-04-09] MEDS ORDERED: Lenalidomide [Revlimid] 10 MG Capsule PO SCH (09:00)
[2021-04-09] MEDS ORDERED: Aspirin 81 mg Enteric Coated Tablet PO SCH (09:00)
[2021-04-09] MEDS: Sodium Chloride 0.9% 1,000 ML IV SCH ×2 (11:50→20:48)
[2021-04-09] MEDS: HYDROcodone/Acetaminophen 10/325 mg Tablet PO PRN ×2 (11:51→15:56)
[2021-04-09] MEDS: Senokot S 8.6-50 MG TAB PO SCH ×2 (11:53→20:48)
[2021-04-09] MEDS: Multivit, Chewable SF 1 TAB PO SCH (11:53)
[2021-04-09] MEDS: Multivitamin W/ Minerals 1 TAB PO SCH (11:53)
[2021-04-09] MEDS: Loratadine 10 MG TAB PO SCH (11:53)
[2021-04-09] MEDS: Ferrous Gluconate 324 MG TAB PO SCH ×2 (11:54→20:48)
[2021-04-09] MEDS: Cholecalciferol 1,000 UNITS (25 MCG) TAB PO SCH (11:54)
[2021-04-09] MEDS: Ketorolac Tromethamine 30 MG/ML VIAL IVP SCH ×2 (12:10→18:48)
[2021-04-09] MEDS: Fentanyl 100 MCG/2 ML VIAL IV PRN ×2 (13:29→18:05)
[2021-04-09] MEDS: ceFAZolin 2 GM/Dextrose 50 ML 2 GM in Premix Bag 1 BAG IVPB SCH ×2 (15:38→22:59)
[2021-04-09] MEDS ORDERED: fentaNYL Citrate/PF 2,000 MCG in Sodium Chloride 0.9% 60 ML IV PRN (18:28)
[2021-04-09] MEDS ORDERED: Naloxone HCl 0.4 mg/ml Vial IV PRN (18:28)
[2021-04-09] MEDS ORDERED: diphenhydrAMINE 50 MG/ML VIAL IVP PRN (18:28)
[2021-04-09] MEDS ORDERED: diphenhydrAMINE 50 MG/ML VIAL IM PRN (18:28)
[2021-04-09] MEDS ORDERED: Communication Order-Pharmacy FS SCH (18:30)
[2021-04-09] MEDS: Senokot 8.6 MG TAB PO SCH (19:38)
[2021-04-10] MEDS: Levothyroxine Sodium 50 MCG TAB PO SCH (05:06)
[2021-04-10] MEDS: Sodium Chloride 0.9% 1,000 ML IV SCH ×2 (05:06→12:46)
[2021-04-10 06:33] LABS: Hemoglobin 10.8 g/dL (14.0-18.0); Mean Corpuscular HGB CONC 34.2 g/dL (32.0-36.0); Mean Corpuscular Hemoglobin 35.6 pg (27.0-31.0); Mean Platelet Volume 8.7 fL (7.4-10.4); Platelet Count 107 thou/uL (130-400); RBC Distribution Width 13.7 % (11.5-14.5); Red Blood Cell (RBC) Count 3.04 mill/uL (4.70-6.10); White Blood Cell (WBC) Count 4.4 thou/uL (4.8-10.8)
[2021-04-10] MEDS ORDERED: Acetaminophen 325 MG TAB PO PRN (06:58)
[2021-04-10] MEDS ORDERED: Zolpidem Tartrate 5 MG TAB PO PRN (06:58)
[2021-04-10] MEDS ORDERED: diphenhydrAMINE 25 MG CAP PO PRN (06:58)
[2021-04-10] MEDS ORDERED: Promethazine HCl 25 MG/ML VIAL IM PRN (06:58)
[2021-04-10] MEDS: Cholecalciferol 1,000 UNITS (25 MCG) TAB PO SCH (08:30)
[2021-04-10] MEDS: Ferrous Gluconate 324 MG TAB PO SCH ×3 (08:30→20:19)
[2021-04-10] MEDS: Senokot S 8.6-50 MG TAB PO SCH ×3 (08:30→20:19)
[2021-04-10] MEDS: Aspirin 81 mg Enteric Coated Tablet PO SCH ×2 (08:30→20:18)
[2021-04-10] MEDS: Multivitamin W/ Minerals 1 TAB PO SCH ×2 (08:30→08:31)
[2021-04-10] MEDS: Loratadine 10 MG TAB PO SCH (08:31)
[2021-04-10] MEDS: Multivit, Chewable SF 1 TAB PO SCH (08:31)
[2021-04-10] MEDS ORDERED: HYDROcodone/Acetaminophen 10/325 mg Tablet PO PRN (10:01)
[2021-04-10] MEDS ORDERED: traMADol HCl 50 MG TAB PO PRN ×2 (10:02)
[2021-04-10] MEDS: HYDROcodone/Acetaminophen 10/325 mg Tablet PO PRN ×3 (10:53→20:19)
[2021-04-10] MEDS: Ondansetron PF 4 MG/2 ML Vial IVP PRN (10:53)
[2021-04-10] MEDS: ceFAZolin 2 GM/Dextrose 50 ML 2 GM in Premix Bag 1 BAG IVPB SCH ×2 (13:13→22:25)
[2021-04-11] MEDS: HYDROcodone/Acetaminophen 10/325 mg Tablet PO PRN ×6 (00:44→23:33)
[2021-04-11] MEDS: Senokot 8.6 MG TAB PO SCH (00:49)
[2021-04-11] MEDS: Sodium Chloride 0.9% 1,000 ML IV SCH ×3 (02:46→18:47)
[2021-04-11] MEDS: Levothyroxine Sodium 50 MCG TAB PO SCH (05:26)
[2021-04-11 06:18] LABS: Hemoglobin 9.7 g/dL (14.0-18.0); Mean Corpuscular HGB CONC 33.7 g/dL (32.0-36.0); Mean Corpuscular Hemoglobin 35.3 pg (27.0-31.0); Mean Platelet Volume 8.3 fL (7.4-10.4); Platelet Count 96 thou/uL (130-400); RBC Distribution Width 13.9 % (11.5-14.5); Red Blood Cell (RBC) Count 2.73 mill/uL (4.70-6.10); White Blood Cell (WBC) Count 4.7 thou/uL (4.8-10.8)
[2021-04-11] MEDS: Cholecalciferol 1,000 UNITS (25 MCG) TAB PO SCH (08:12)
[2021-04-11] MEDS: Aspirin 81 mg Enteric Coated Tablet PO SCH ×2 (08:12→20:47)
[2021-04-11] MEDS: Multivit, Chewable SF 1 TAB PO SCH (08:13)
[2021-04-11] MEDS: Multivitamin W/ Minerals 1 TAB PO SCH (08:13)
[2021-04-11] MEDS: Senokot S 8.6-50 MG TAB PO SCH ×2 (08:13→20:48)
[2021-04-11] MEDS: Loratadine 10 MG TAB PO SCH (08:13)
[2021-04-11] MEDS: Ferrous Gluconate 324 MG TAB PO SCH ×2 (08:13→20:48)
[2021-04-11] MEDS: Ondansetron PF 4 MG/2 ML Vial IVP PRN (20:47)
[2021-04-12] MEDS: Senokot 8.6 MG TAB PO SCH (01:29)
[2021-04-12] MEDS: HYDROcodone/Acetaminophen 10/325 mg Tablet PO PRN ×2 (03:33→07:20)
[2021-04-12] MEDS: Levothyroxine Sodium 50 MCG TAB PO SCH (05:47)
[2021-04-12] MEDS: Sodium Chloride 0.9% 1,000 ML IV SCH (07:13)
[2021-04-12 07:38] VITALS: BP 136/82; TEMP 98.1
[2021-04-12] MEDS: Senokot S 8.6-50 MG TAB PO SCH (09:33)
[2021-04-12] MEDS: Aspirin 81 mg Enteric Coated Tablet PO SCH (09:33)
[2021-04-12] MEDS: Ferrous Gluconate 324 MG TAB PO SCH (09:36)
[2021-04-12] MEDS: Cholecalciferol 1,000 UNITS (25 MCG) TAB PO SCH (09:36)
[2021-04-12] MEDS: Loratadine 10 MG TAB PO SCH (09:36)
[2021-04-12] MEDS: Multivit, Chewable SF 1 TAB PO SCH (09:36)
[2021-04-12] MEDS: Multivitamin W/ Minerals 1 TAB PO SCH (09:37)
== END 2021-04-12 10:30 | disposition home health service (06) | DRG 470 ==
LOC: SDC 05:21 → SURG A 07:10 → SDC 16:32 → OBSVTOIN 04-12 07:04
PROVIDERS: ADMIT Orthopaedic Surgery; ATTEND Orthopaedic Surgery
PROC: 0SRC0J9 Replacement of Right Knee Joint with Synthetic Substitute, Cemented, Open Approach (ICD-10-PCS; principal; 2021-04-09)
DX: M17.11 Unilateral primary osteoarthritis, right knee (principal); C90.00 Multiple myeloma not having achieved remission; E03.9 Hypothyroidism, unspecified; E78.5 Hyperlipidemia, unspecified; Z94.84 Stem cells transplant status; Z98.890 Other specified postprocedural states; Z86.711 Personal history of pulmonary embolism; Z82.49 Family history of ischemic heart disease and other diseases of the circulatory system; Z88.6 Allergy status to analgesic agent; Z88.0 Allergy status to penicillin; Z79.899 Other long term (current) drug therapy; Z79.890 Hormone replacement therapy; Z79.01 Long term (current) use of anticoagulants
CPT/HCPCS: 36415; 85027; 96372; 96374; 96375; 96376; A4306; C1713; C1776; G0378; J0690; J2250; J2405; J2550; J2704; J2795; J3010; J3370; J3490; J7050; S0020

== ENCOUNTER 2021-10-31 11:32 | Outpatient (CLI) | payer MEDICARE, OTHER | END 2021-10-31 11:33 | disposition home or self-care (01) | LOC: MRI 11:32 | PROVIDERS: ATTEND Anesthesiology Pain Medicine | DX: M48.062 Spinal stenosis, lumbar region with neurogenic claudication (principal); M47.816 Spondylosis without myelopathy or radiculopathy, lumbar region; M41.9 Scoliosis, unspecified | CPT/HCPCS: 72148 ==

== ENCOUNTER 2023-04-10 14:02 | Outpatient (CLI) | payer MEDICARE, OTHER | END 2023-04-10 14:03 | disposition home or self-care (01) | LOC: SCSMRI 14:02 | PROVIDERS: ATTEND Anesthesiology Pain Medicine | DX: M47.26 Other spondylosis with radiculopathy, lumbar region (principal); M47.817 Spondylosis without myelopathy or radiculopathy, lumbosacral region | CPT/HCPCS: 72148 ==